=== PATIENT | male | born 1960 | race Caucasian/White ===

== ENCOUNTER 2016-09-24 08:47 | Day surgery (SDC) | payer MEDICAID ==
[~2016-09-24] VITALS: Ht 160 cm; Wt 61.3 kg
--- NOTE | ~2016-09-24 | OR ---
PATIENT'S NAME: FRANCISCO J LAGOS [facility] AGE: 56 Y [address] ROOM: [place] [id number] LOCATION: [facility] – [place] ADMIT DATE: 09/24/2016 OR/Procedure Report DISCHARGE DATE: 09/24/2016 FAMILY PHYSICIAN: Lux Burciaga ATTENDING PHYSICIAN: Cruzito Underwood SURGEON: Cruzito Underwood DO LAUNCH CHECK OUT: DATE OF PROCEDURE: 09/24/2016 PREOPERATIVE DIAGNOSIS: Poorly healing sternal wound. POSTOPERATIVE DIAGNOSIS: Poorly healing sternal wound. PROCEDURE PERFORMED: Excision of tiny superficial wound dehiscence, 0.2 cm x 0.2 cm. BRIEF HISTORY/INDICATIONS FOR PROCEDURE: Mr. Lagos has had difficulties with wound healing secondary to diabetes, poor compliance, and self intervention with probing of the wound with nonsterile materials. DESCRIPTION OF PROCEDURE: The patient has been brought to the operative suite, again today for excision of a very small wound dehiscence which is approximately 2 mm x 2 mm. He was anesthetized with a general anesthetic. The spot was excised with elliptical incision. Further dissection was carried down to the level of the sternum. Soft tissue and bony debridements were carried out. Cultures were obtained. The skin was undermined along the pectoral fascia to allow closure as he is quite thin with minimal subcutaneous tissue. We packed the wound with vancomycin powder, closed the incision with 0 Prolene, and skin jhoan and then covered the incision with a Dermabond Prineo system. The patient tolerated the procedure well, was transferred to the outpatient recovery area in stable condition. DO KELECHI HERMAN/modl /[id number] d: 09/27/16 1718 t: 09/28/16 1010, OPERATIVE SUMMARY
[~2016-09-24 08:47] MED LIST: ASPIRIN LO-DOSE81 MG PO; AUGMENTIN250 MG PO; COLACE100 MG PO; CORDARONE,PACE200 MG PO; COREG12.5 MG PO; COZAAR50 MG PO; FAMOTIDINE20 MG PO; GLUCOPHAGE1000 MG PO; K-TAB 10MEQ10 MEQ PO; K-TAB ER20 MEQ PO; L-ARGININE500 M1 PO; LASIX40 MG PO; LEVAQUIN500 MG PO; LIPITOR80 MG PO; NITROSTAT0.4 MG SL; NORCO 5-325 TA1 EACH PO; TYLENOL EXTRA500 MG PO; VASOTEC2.5 MG PO; ZOLOFT25 MG PO
[2016-09-24] MEDS ORDERED: NORCO 5-325 TA1 EACH PO (12:03)
== END 2016-09-24 12:30 | disposition disaster alternative care site (69) ==
LOC: GSDC 08:47
PROC: 0PB00ZZ Excision of Sternum, Open Approach (ICD-10-PCS; principal; 2016-09-24)
DX: T81.32XA Disruption of internal operation (surgical) wound, not elsewhere classified, initial encounter (principal); I10 Essential (primary) hypertension; I25.10 Atherosclerotic heart disease of native coronary artery without angina pectoris; F31.9 Bipolar disorder, unspecified; E11.9 Type 2 diabetes mellitus without complications; I25.2 Old myocardial infarction; Z95.1 Presence of aortocoronary bypass graft; Z79.82 Long term (current) use of aspirin; Z79.899 Other long term (current) drug therapy; Z98.890 Other specified postprocedural states
CPT/HCPCS: J0690; J3370; J7030